=== PATIENT | male | born 1955 | race Caucasian/White ===

== ENCOUNTER 2022-07-10 07:29 | Outpatient (CLI) | payer OTHER | END 2022-07-10 07:30 | disposition home or self-care (01) | LOC: CSHCT 07:29 | PROVIDERS: ATTEND Family Medicine | DX: Z13.6 Encounter for screening for cardiovascular disorders (principal); Z12.2 Encounter for screening for malignant neoplasm of respiratory organs; F17.210 Nicotine dependence, cigarettes, uncomplicated | CPT/HCPCS: 71271; 76706 ==